=== PATIENT | female | born 1975 | race African-American/Black ===

== ENCOUNTER → 2018-08-04 | Outpatient (CLI) | payer BC ==
--- NOTE | 2018-08-04 18:13 | RAD ---
Two-view abdomen radiographs 08/04/2018 CLINICAL HISTORY: Abdominal pain with nausea and vomiting. Supine and erect AP digital radiographs abdomen/pelvis were obtained. The lung bases are clear. The abdominal bowel gas pattern is nonobstructive. There is no evidence of free air. Calcifications are seen within the pelvis consistent with phleboliths. Minimal S-shaped curvature of the thoracolumbar spine is seen. IMPRESSION: Nonobstructive bowel gas pattern. Electronically signed by: Redd Johnson MD (08/04/2018 6:09 PM) [id number]
== END | disposition home or self-care (01) ==
LOC: DXRAD 16:20
PROVIDERS: ATTEND Physician Assistant
DX: I87.8 Other specified disorders of veins (principal); M43.8X5 Other specified deforming dorsopathies, thoracolumbar region
CPT/HCPCS: 74021

== ENCOUNTER → 2018-08-30 | Outpatient (CLI) | payer BC ==
--- NOTE | 2018-08-30 10:18 | RAD ---
EXAM: Abdomen sonogram. HISTORY: Epigastric pain. TECHNIQUE: Sonographic imaging of the abdomen was performed. COMPARISON: None. FINDINGS: The liver is normal in size. No focal hepatic lesion is seen. The gallbladder is unremarkable. The common bile duct is normal in caliber. The kidneys are normal in size. There is no hydronephrosis. No solid or cystic renal lesion is seen. The pancreas, spleen, aorta and inferior vena cava are unremarkable. There is ingested material within the stomach. IMPRESSION: 1. Ingested material within the stomach. This is despite the fasting status of patient. The possibly of a component of delayed gastric emptying is not excluded. This can be better assessed with a nuclear gastric imaging scan if there is clinical concern. 2. Otherwise, unremarkable abdomen sonogram. Electronically signed by: Radha Castellano MD (08/30/2018 10:14 AM) [id number]
== END | disposition home or self-care (01) ==
LOC: US 08:40
PROVIDERS: ATTEND Physician Assistant
DX: R10.13 Epigastric pain (principal)
CPT/HCPCS: 76700

== ENCOUNTER → 2018-09-22 | Outpatient (CLI) | payer BC ==
[~2018-09-22] VITALS: Ht 162.6 cm; Wt 49.9 kg
[~2018-09-22] MED LIST: NO HOME MEDS
[2018-09-22] MEDS: SINCALIDE 1 MCG in IV NORMAL SALINE 50ML 30 ML IV ONE (11:21)
--- NOTE | 2018-09-22 13:50 | RAD ---
HEPATOBILIARY SCAN WITH EJECTION FRACTION 09/22/2018 1:44 PM History: abd. pain for aprrox. 1 yr. Procedure: Serial static images are obtained of the liver and biliary system in the frontal projection following IV administration of 5.5 mCi of Technetium 99m Choletec. After filling of the gallbladder, 1 mcg of sincalide were infused over 30 minutes and dynamic imaging continued over this period. The gallbladder ejection fraction was calculated. Findings: There is prompt hepatic clearance of tracer from the blood pool. There is homogeneous distribution throughout the liver. The gallbladder ejection fraction measures 80% (normal gallbladder EF is 35% or greater). IMPRESSION: 1. The cystic duct and common bile duct are patent. Negative for acute cholecystitis. 2. The gallbladder ejection fraction is within normal limits Electronically signed by: Jordi Cedillo MD (09/22/2018 1:45 PM) [id number]
== END | disposition home or self-care (01) ==
LOC: NM 09:36
PROVIDERS: ATTEND Internal Medicine Gastroenterology
DX: R10.13 Epigastric pain (principal); R11.0 Nausea
CPT/HCPCS: 78227; A9537; J2805